=== PATIENT | male | born 1955 | race Caucasian/White ===

== ENCOUNTER 2025-02-13 09:50 | Outpatient (CLI) | payer MEDICARE ==
[2025-02-13 10:50] LABS: Estimated GFR - POC 82.0
[2025-02-13] MEDS ORDERED: Iopamidol 300 61% 100 ML VIAL FS ONE (12:48)
== END 2025-02-13 09:51 | disposition home or self-care (01) ==
LOC: CSHCT 09:50
PROVIDERS: ATTEND Internal Medicine Gastroenterology
DX: K90.0 Celiac disease (principal); R19.7 Diarrhea, unspecified; A04.8 Other specified bacterial intestinal infections; K52.832 Lymphocytic colitis; K62.9 Disease of anus and rectum, unspecified; K63.9 Disease of intestine, unspecified
CPT/HCPCS: 36415; 74177; 82565; Q9967